=== PATIENT | male | born 1995 | race African-American/Black ===

== ENCOUNTER 2017-12-11 19:50 | Emergency (ER) | payer MEDICAID, OTHER | END 2017-12-11 20:37 | disposition home or self-care (01) | LOC: ER 19:50 | DX: T81.89XA Other complications of procedures, not elsewhere classified, initial encounter (principal); Z48.01 Encounter for change or removal of surgical wound dressing | CPT/HCPCS: 99281 ==

== ENCOUNTER → 2017-12-14 | Outpatient (CLI) | payer OTHER | END | disposition home or self-care (01) | LOC: PMGWOUND 11:57 | DX: T81.89XD Other complications of procedures, not elsewhere classified, subsequent encounter (principal); I74.3 Embolism and thrombosis of arteries of the lower extremities; M62.262 Nontraumatic ischemic infarction of muscle, left lower leg; I50.9 Heart failure, unspecified; F12.10 Cannabis abuse, uncomplicated; Z86.718 Personal history of other venous thrombosis and embolism; Y83.8 Other surgical procedures as the cause of abnormal reaction of the patient, or of later complication, without mention of misadventure at the time of the procedure | CPT/HCPCS: 87071; 87075; 87205; 97606 ==

== ENCOUNTER → 2017-12-17 | Outpatient (CLI) | payer OTHER | END | disposition home or self-care (01) | LOC: PMGWOUND 11:58 | DX: T81.89XA Other complications of procedures, not elsewhere classified, initial encounter (principal); E11.621 Type 2 diabetes mellitus with foot ulcer; L97.521 Non-pressure chronic ulcer of other part of left foot limited to breakdown of skin; I74.3 Embolism and thrombosis of arteries of the lower extremities; M62.262 Nontraumatic ischemic infarction of muscle, left lower leg; E11.22 Type 2 diabetes mellitus with diabetic chronic kidney disease; N18.9 Chronic kidney disease, unspecified; I50.9 Heart failure, unspecified; E11.51 Type 2 diabetes mellitus with diabetic peripheral angiopathy without gangrene; F41.9 Anxiety disorder, unspecified; K21.9 Gastro-esophageal reflux disease without esophagitis; F12.10 Cannabis abuse, uncomplicated; F17.210 Nicotine dependence, cigarettes, uncomplicated; Z86.718 Personal history of other venous thrombosis and embolism; Z79.01 Long term (current) use of anticoagulants; Z79.82 Long term (current) use of aspirin; Y83.8 Other surgical procedures as the cause of abnormal reaction of the patient, or of later complication, without mention of misadventure at the time of the procedure | CPT/HCPCS: 97606 ==

== ENCOUNTER → 2017-12-20 | Day surgery (SDC) | payer OTHER, MEDICAID ==
[~2017-12-20] MED LIST: AMOXICILLIN/K CLAV 875/125MG TABLET. PO; ANTI-COAG MONITOR BY PHARMACY. MC; APIXABAN 5 MG TABLET. PO; ASCORBIC ACID 500 MG TABLET PO; BUPIVACAINE-EPI 0.25%-1:200000 50 ML VIAL.; CLOPIDOGREL BISULFATE 75 MG TABLET PO; DEXAMETHASONE SOD PHOS 20 MG/5 ML VIAL.; FERROUS SULFATE 325 MG TABLET. PO; HYDROcodone/APAP 7.5/325MG 1 TAB TABLET PO; LIDOCAINE 1% PF 2 ML VIAL. ID; LIDOCAINE 1% PF 30 ML VIAL.; LIDOCAINE 2% PF Vial for OR 5 ML VIAL.; LIDOCAINE 2%/EPI 1:100,000 20 ML VIAL.; METOPROLOL TART IMMED RELEASE 25 MG TABLET. PO; MIDAZOLAM HCL/PF 2 MG/2 ML VIAL.; NON FORMULARY ITEM (Gabapentin 300 MG) PO; ONDANSETRON PF 4 MG/2 ML VIAL.; ONDANSETRON PF 4 MG/2 ML VIAL. IV; PHENYLEPHRINE in 0.9% NACL PF 1 MG/10 ML SYRINGE. IV; PROCHLORPERAZINE 10 MG/2 ML VIAL. IV; PROPOFOL 20 ML IV; SIMVASTATIN 5 MG TABLET. PO; VASOPRESSIN 20 UNIT/ML VIAL.; ePHEDrine PF IN SALINE 50 MG/5 ML DISP.SYRIN IV; fentaNYL PF VIAL 100 MCG/2 ML VIAL; fentaNYL PF VIAL 100 MCG/2 ML VIAL IV
[2017-12-20] MEDS: IV RINGERS,LACTATED 1000ML 1,000 ML IV (12:46)
[2017-12-20 12:47] LABS: ADD MAN DIFF? NO
[2017-12-20 12:56] LABS: BASO # 0.1 x10^3/uL (0.0-0.2); BASO % 1 % (0-3); EOS # 0.3 x10^3/uL (0.0-0.7); EOS % 6 % (0-3); HEMATOCRIT 33.7 % (39.0-53.0); HEMOGLOBIN 11.2 g/dL (13.0-17.5); LYMPH # 2.2 x10^3/uL (1.0-4.8); LYMPH % 34 % (24-48); MEAN CORPUSCULAR HEMOGLOBIN 29 pg (25-35); MEAN CORPUSCULAR HGB CONC 33 g/dL (31-37); MEAN CORPUSCULAR VOLUME 88 fL (79-100); MONO # 0.6 x10^3/uL (0.0-1.1); MONO % 9 % (0-9); NEUT # 3.2 x10^3uL (1.8-7.7); NEUT % 50 % (31-73); PLATELET COUNT 431 x10^3/uL (140-400); RED BLOOD COUNT 3.84 x10^6/uL (4.30-5.70); RED CELL DISTRIBUTION WIDTH 16.4 % (11.5-14.5); WHITE BLOOD COUNT 6.3 x10^3/uL (4.0-11.0)
[2017-12-20 13:03] LABS: ANION GAP 6 (6-14); BLOOD UREA NITROGEN 11 mg/dL (8-26); CALCIUM 9.8 mg/dL (8.5-10.1); CARBON DIOXIDE 31 mmol/L (21-32); CHLORIDE 102 mmol/L (98-107); CREATININE 1.3 mg/dL (0.7-1.3); GFR 82.1; GLUCOSE 95 mg/dL (70-99); POTASSIUM 3.6 mmol/L (3.5-5.1); SODIUM 139 mmol/L (136-145)
[2017-12-20 13:09] LABS: INR 1.1 (0.8-1.1); PARTIAL THROMBOPLASTIN TIME 28 SEC (24-38); PROTHROMBIN TIME PATIENT 13.9 SEC (11.7-14.0)
[2017-12-20] MEDS: MINERAL OIL for SURGERY 10 ML VIAL. MC ×5 (14:43)
[2017-12-20] MEDS: LIDOCAINE 1%/EPI 1:100,000 30 ML VIAL. IJ (14:43)
[2017-12-20] MEDS: BACITRACIN TOPICAL OINT 14GM TUBE. TP (15:40)
[2017-12-20] MEDS: fentaNYL PF VIAL 100 MCG/2 ML VIAL IV ×2 (16:31→17:16)
[2017-12-20] MEDS: HYDROcodone/APAP 7.5/325MG 1 TAB TABLET PO (17:08)
== END | disposition home or self-care (01) ==
LOC: SURG 11:46
DX: S81.802A Unspecified open wound, left lower leg, initial encounter (principal); I96 Gangrene, not elsewhere classified; L02.612 Cutaneous abscess of left foot; L97.529 Non-pressure chronic ulcer of other part of left foot with unspecified severity; M86.8X7 Other osteomyelitis, ankle and foot; Z86.73 Personal history of transient ischemic attack (TIA), and cerebral infarction without residual deficits; Z88.5 Allergy status to narcotic agent; Z79.899 Other long term (current) drug therapy; Z79.2 Long term (current) use of antibiotics; Z82.49 Family history of ischemic heart disease and other diseases of the circulatory system; Z98.890 Other specified postprocedural states; I42.9 Cardiomyopathy, unspecified; F12.90 Cannabis use, unspecified, uncomplicated; Z86.14 Personal history of Methicillin resistant Staphylococcus aureus infection; X58.XXXA Exposure to other specified factors, initial encounter; Y93.89 Activity, other specified; Y92.89 Other specified places as the place of occurrence of the external cause; Y99.8 Other external cause status
CPT/HCPCS: 11750; 36415; 80048; 85025; 85610; 85730; 88305; 88311; A7015; C1768; J0690; J1100; J2250; J2370; J2405; J2704; J3010; J3490; J7120

== ENCOUNTER 2017-12-30 01:16 | Emergency (ER) | payer OTHER | END 2017-12-30 01:40 | disposition home or self-care (01) | LOC: ER 01:16 | DX: I80.8 Phlebitis and thrombophlebitis of other sites (principal); Z79.02 Long term (current) use of antithrombotics/antiplatelets; Z88.5 Allergy status to narcotic agent; Z91.041 Radiographic dye allergy status | CPT/HCPCS: 99281 ==